=== PATIENT | male | born 1945 | race African-American/Black ===

== ENCOUNTER 2021-12-04 12:17 | Day surgery (SDC) | payer MEDICARE, SELFPAY ==
--- NOTE | ~2021-12-04 | FL_ITS ---
EXAMINATION: XR FLUOROSCOPY WITH IMAGES CLINICAL INFORMATION: Placement of dialysis permacath COMPARISON: Chest radiographs 07/06/2017. TECHNIQUE: Fluoroscopy performed by Dr. Shaver. Fluoroscopy time: 1.5 minutes. Cumulative Dose: 13.8 mGy. Images: 3. FINDINGS: Right venous dialysis catheter is seen with tip at approximately level of proximal right atrium. FL/FL guidance in OR IMPRESSION: Fluoroscopy for surgical procedure.
[2021-12-04 13:01] VITALS: BP 99/60; PULSE 96; RESP 17; TEMP 36.1; O2SAT 98; BMI 23.4
--- NOTE | 2021-12-04 13:09 | PM.PNNEP ---
Subjective Subjective Date of Service: 12/04/21 Principal diagnosis: ESRD Interval history: Patient arrived for tunneled HD catheter exchange. Physical Exam Vital Signs: Vital Signs: Last Vital Signs Temp 97.0 F 12/04/21 13:01 Pulse 96 12/04/21 13:01 Resp 17 12/04/21 13:01 BP 99/60 12/04/21 13:01 Pulse Ox 98 12/04/21 13:01 O2 Del Method 12/04/21 13:01 BMI result Body Mass Index 23.4 Neck: Other: HD catheter intact and exiting from right chest; no erythema, induration or fluctuance Objective Data Labs CBC & Chem 7: 12/04/21 12:57 Procedures Date of Service Date of Service: 12/04/21 Assessment & Plan Assessment and plan (1) ESRD (end stage renal disease): Status: Acute Plan Plan for HD catheter exchange. The patient has not had dialysis since Wednesday. He will need this procedure emergently. The benefit of the procedure outweighs the risk of aspiration since he had a glass of milk this afternoon. Time Spent With Patient Time: Total time spent is greater than 50% in coordination of care (as documented) at patient's floor/unit and/or counseling patient:
--- NOTE | 2021-12-04 13:09 | HO.ANESPROP2 ---
[facility] Surgical History Surgical History History of colonoscopy Social History Social History Patient Tobacco Use Status: Never used Tobacco Use of substances other than those prescribed or required for medical reasons: No Are you DNR?: Yes Advance Directives: No Advance Directives Information Provided: Yes Meds Allergies Allergy/AdvReac Type Severity Reaction Status Date / Time No Known Allergies Allergy Unverified 02/01/20 17:13 Exam Exam Date and Time: December 04, 2021 1309 Height,Weight and Vital Signs: Height 5 ft 11 in Weight 76.204 kg Last Vital Signs Temp 97.0 F 12/04/21 13:01 Pulse 96 12/04/21 13:01 Resp 17 12/04/21 13:01 BP 99/60 12/04/21 13:01 Pulse Ox 98 12/04/21 13:01 O2 Del Method 12/04/21 13:01
--- NOTE | 2021-12-04 13:12 | P.CONAN_ITS ---
[facility] Active Problems Active Problems: renal failure liver cancer former smoker Past Medical History Cognitive capacity: limited Family History Family history of problems with anesthesia: No Surgical History Surgical History History of colonoscopy History of Problems with Anesthesia: No Social History Social History Patient Tobacco Use Status: Never used Tobacco Use of substances other than those prescribed or required for medical reasons: No Are you DNR?: Yes Advance Directives: No Advance Directives Information Provided: Yes Meds Allergies Allergy/AdvReac Type Severity Reaction Status Date / Time No Known Allergies Allergy Unverified 02/01/20 17:13 Active Medications: mididrine oxycodone Exam Exam Date and Time: December 04, 2021 1312 Height,Weight and Vital Signs: Height 5 ft 11 in Weight 76.204 kg Last Vital Signs Temp 97.0 F 12/04/21 13:01 Pulse 96 12/04/21 13:01 Resp 17 12/04/21 13:01 BP 99/60 12/04/21 13:01 Pulse Ox 98 12/04/21 13:01 O2 Del Method 12/04/21 13:01 Airway Mallampati Class: IV TM Dist: >3cm Neck ROM: Full Heart: rrr Lungs: clear Assessment and Plan Final Anesthetic Review Family History of Problems with Anesthesia: No History of Problems with Anesthesia: No NPO: No (Milk at 11:30 AM) ASA Class: III and Emergency Patient Risk: High Procedure Risk: Low Anesthetic Plan Anesthetic Plan: MAC: Disposition: Standard PACU
[2021-12-04 13:33] LABS: Anion Gap 14 (12-20); Carbon Dioxide 25 mmol/L (22-29); Chloride 102 mmol/L (96-108); Sodium 137 mmol/L (135-145)
--- NOTE | 2021-12-04 13:45 | PC.NURSE ---
list of medications obtained from pharmacy & printed, with listed meds taken am 12/04/21. emergent note written to proceed with procedure as pt was unable to complete last dialysis
[2021-12-04 15:18] VITALS: BP 105/68; PULSE 83; RESP 16; TEMP 36.6; O2SAT 99
--- NOTE | 2021-12-04 15:20 | W.PM.OPN ---
Operative Note Operative Note Date of Service: 12/04/21 Narrative: Pre-op Dx: Malfunctioning Hemodialysis Catheter Post-op Dx: Malfunctioning Hemodialysis Catheter Operation: Replacement of tunneled hemodialysis catheter (same side) Surgeon: Reba Shaver Anesthesia: MAC/local Finding: Tip in right atrium Procedure: Patient was placed on the OR table in a supine position with both arms at his side. Lower extremity compression devices were placed. MAC anesthesia was induced and the patient was prepped and draped in a sterile fashion. A surgical timeout was performed. Fluoroscopy was used and the catheter was noted to be in the right atrium. The catheter would not withdraw blood. Local anesthesia was used. Using a #15 scalpel, an incision was made where the catheter enters the RIJ. The catheter was isolated, clamped and divided. A wire was inserted through the distal cut end and confirmed to be in the right ventricle using fluoroscopy. The distal and proximal ends of the catheter were removed. A dilator with peelable sheath was placed over the wire. A new catheter was tunneled lateral to the prior tunnel. The catheter tip was inserted into the peelable sheath and the sheath was removed. The catheter tip was confirmed to be in the right atrium. It flushed well. The catheter was sutured to the chest and secured. The neck incision was closed in layers. A dressing was placed.
[2021-12-04 15:33] VITALS: BP 94/61; PULSE 84; RESP 16; O2SAT 99
[2021-12-04 15:47] VITALS: BP 100/57; PULSE 79; RESP 16; O2SAT 100
[2021-12-04 16:03] VITALS: BP 94/55; PULSE 83; RESP 16; TEMP 36.1; O2SAT 98
[2021-12-04 16:20] VITALS: BP 94/53; PULSE 83; RESP 16; O2SAT 99
== END 2021-12-04 16:32 | disposition home or self-care (01) ==
PROVIDERS: Anesthesiology; PCP Family Medicine; Visit Provider Transplant Surgery
PROC: (CPT 36581; principal; 2021-12-04 12:20)
DX: T82.41XA Breakdown (mechanical) of vascular dialysis catheter, initial encounter (principal); N18.6 End stage renal disease; Y73.1 Therapeutic (nonsurgical) and rehabilitative gastroenterology and urology devices associated with adverse incidents; Y92.9 Unspecified place or not applicable; Y82.8 Other medical devices associated with adverse incidents; Y83.2 Surgical operation with anastomosis, bypass or graft as the cause of abnormal reaction of the patient, or of later complication, without mention of misadventure at the time of the procedure; Z99.2 Dependence on renal dialysis
CPT/HCPCS: 36581; 36415; 80051; C1750; C1769; J0690; J3010; J3370; Q9967